=== PATIENT | male | born 1995 | race Caucasian/White ===

== ENCOUNTER 2021-03-03 18:14 | Emergency (ER) | payer OTHER ==
[~2021-03-03] VITALS: Ht 182.9 cm; Wt 88.6 kg
[2021-03-03] MEDS ORDERED: CEPHALEXIN500 M1 PO (19:13)
[2021-03-03 19:30] VITALS: BP 112/73; PULSE 74; TEMP 97.8
== END 2021-03-03 19:30 | disposition home or self-care (01) ==
LOC: COL.ER 18:14
DX: S56.421A Laceration of extensor muscle, fascia and tendon of right index finger at forearm level, initial encounter (principal); F17.220 Nicotine dependence, chewing tobacco, uncomplicated; W26.0XXA Contact with knife, initial encounter